=== PATIENT | male | born 1955 | race Caucasian/White ===

== ENCOUNTER 2016-05-25 05:46 | Day surgery (SDC) | payer BC ==
[~2016-05-25] VITALS: Ht 176.5 cm; Wt 93.1 kg
[~2016-05-25 05:46] MED LIST: ASPI-611 PO; GLIM1TAB PO; LISI-127 PO; METF-200 PO; METO25TA27 PO; MULT-806 PO; SIMV40TA82 PO
[2016-05-25 06:09] VITALS: BP 158/80; PULSE 54; RESP 14; TEMP 98; O2SAT 98; Ht 176.5 cm; Wt 93.1 kg
[2016-05-25] MEDS ORDERED: POTASSIUM PO (06:16)
[2016-05-25] MEDS ORDERED: LR 1,000 ML IV SCH (07:00)
[2016-05-25] MEDS ORDERED: LIDOCAINE 1% (10mg/ml) 2ml SDV INJ ONE (07:00)
--- NOTE | 2016-05-25 07:09 | ANESPREOP ---
Anesthesia Record Date and Time DATE: 05/25/16 TIME: 07:07 Pre-Op Diagnosis screening Proposed Surgical Procedure COLONOSCOPY NPO since: mn Allergies: Coded Allergies: Penicillins (Verified Allergy, Unknown, 05/25/16) Ht/Wt/BMI Height: 5 ' 9.50 " Weight: 93.100 kg BMI: 29.9 kg/m2 Vital Signs Date Time Temp Pulse Resp B/P Pulse Ox O2 Delivery O2 Flow Rate FiO2 05/25/16 06:09 98.0 54 14 158/80 98 Room Air Medications Inpatient Medications Current Medications Medications (Trade) Dose Ordered Sig/Finesse Start Time Stop Time Status Last Admin Dose Admin Lactated Ringer's (Lactated Ringers) 1,000 ml @ 50 mls/hr Q20H 05/25/16 07:00 05/25/16 06:25 50 MLS/HR Aspirin (Aspirin) 81 Mg Tablet, 81 MG PO DAILY, (Reported) Last Taken: on 05/23/16 Glimepiride (Glimepiride) 1 Mg Tablet, 1 MG PO DAILY, (Reported) Last Taken: on 05/24/16929 Lisinopril (Lisinopril) 10 Mg Tablet, 10 MG PO DAILY, (Reported) Last Taken: on 05/24/16929 Metformin Hcl (Metformin Hcl) 500 Mg Tablet, 500 MG PO BID, (Reported) Last Taken: on 05/23/16 Metoprolol Succinate (Metoprolol Succinate) 25 Mg Tab.sr.24h, 25 MG PO BID, (Reported) Last Taken: on 05/25/16 0400 Multivitamins (Multivitamin) 1 Tab Tablet, 1 TAB PO DAILY, (Reported) Last Taken: on 05/24/16929 Simvastatin (Simvastatin) 40 Mg Tablet, 40 MG PO DAILY, (Reported) Last Taken: on 05/24/16 2230 [Potassium] , PO D, (Reported) Last Taken: on 05/24/16929 Currently on Beta Renato: Yes Beta Renato Last Taken: TODAY 399 Medical/Surgical History Anesthesia PMH: Reports: *Diabetes (type 2 does not check blood sugars at home ), *Hypertension (controlled with meds), Anesthesia Reactions (no airway issues , N&V), Arthritis (fingers & back ), Cancer (prostate ), Denies: *Angina, * Dyspnea, *CT, Asthma, Blood Transfusion Reac, CHF, COPD, CVA/Stroke/TIA, Clotting Problems, Deep Vein Thrombosis, Glaucoma, Hepatitis, Hiatal Hernia, Malignant Hyperthermia, Pneumonia (POSSIBLY A CHILD), Reflux, Renal Disease, Seizures, Sleep Apnea, Thyroid Disease, Tuberculosis Smoking Status: Former smoker (10+ smoker ) Substance Use Type: does not use Alcohol Intake: none Past Surgical History Orthopedic Surgeries: Yes - LEFT HAND-FINGER REPAIRS Abdominal Surgeries: Yes - balaji Genitourinary Surgeries: No Cardiac Surgeries: No Endocrine Surgeries: No Reproductive Surgeries: Yes - PROSTATECTOMY Neurological Surgeries: No Ear Surgeries: No Nose Surgeries: Yes - septoplasty Throat Surgeries: No Other Surgeries: Yes - prostate surgery, colonoscopy X2 Anesthesia Adverse Reactions: FOUND nausea and vomiting, FOUND other (low blood pressure with prostate ) Hx of Motion Sickness: No Pertinent Findings EKG Rhythm: Sinus Rhythm Physical Exam Respiratory: Bilat breath sounds equal, Lungs clear Cardiovascular: FOUND Regular rate, rhythm, FOUND No murmur Airway Assessment Mallampati Score: II TMD: 3 Fingerbreadths Neck Extension: Fair Teeth: Upper Dentures, Partial Lower Dentures Overall Assessment: May Be Diff Intubation ASA: 2 Plan Anesthesia Plan: TIVA Discussion Discussed risks/options/alternatives of anesthesia and questions answered. Patient consents. Nursing pain assessment noted. Attestation Statement Prior to the delivery of any anesthetic medication, I examined the patient, developed the plan, obtained the patient's consent and discussed the risk and benefits of the procedure with the patient/guardian. ONIEL FERNANDEZ CRNA May 25, 2016 07:09
[2016-05-25] MEDS ORDERED: PROPOFOL 500mg 50 ML IV ONE (07:14)
[2016-05-25] MEDS ORDERED: LIDOCAINE 2% (20mg/ml) 5ml PF SDV ONE (07:14)
[2016-05-25 08:12] VITALS: BP 109/63; PULSE 50; RESP 12; TEMP 97.3; O2SAT 94
[2016-05-25 08:25] VITALS: BP 133/71; PULSE 46; RESP 14; O2SAT 96
[2016-05-25 08:40] VITALS: BP 154/79; PULSE 44; RESP 15; O2SAT 96
--- NOTE | 2016-05-25 08:50 | ANESPO ---
Post-Op Note Date 05/25/16 Time: 08:50 Status Pt Participated in Evaluation: Pt participated in person Vital Signs Date Time Temp Pulse Resp B/P Pulse Ox O2 Delivery O2 Flow Rate FiO2 05/25/16 08:25 46 14 133/71 96 Room Air 05/25/16 08:12 97.3 Respiratory Function: Airway patent, Regular respirations Cardiovascular Function: Regular pulse Mental Status: Alert/oriented Pain Level Intensity: 0 Hydration: IV infusing Complications during Recovery None apparent Follow-Up Instructions Instructions Per Surgeon ONIEL BRIGGS CRNA May 25, 2016 08:50
[2016-05-25 08:55] VITALS: BP 132/77; PULSE 48; RESP 14; O2SAT 97
[2016-05-25 09:15] VITALS: BP 137/82; PULSE 48; RESP 15; O2SAT 96
--- NOTE | 2016-05-25 13:18 | OPNOTEF ---
DATE OF PROCEDURE: 05/25/2016 SURGEON : Cornelio Alvarado MD PREOPERATIVE DIAGNOSIS Colorectal cancer surveillance/personal history of colon polyps. POSTOPERATIVE DIAGNOSIS Colorectal cancer surveillance/personal history of colon polyps, mild to moderate sigmoid diverticulosis, colonic polyps located within the cecum, 80 cm, 60 cm, 40 cm and 35 cm. PROCEDURE: Colonoscopy with polypectomy via snare technique. ANESTHESIA: TIVA. BRIEF HISTORY/INDICATIONS Jaspal is a 61-year-old patient of mine who had a colonoscopy three years ago. At that time he was found to have multiple tubular adenomas. The decision was made to proceed with a repeat colonoscopy. For completeness please refer to office notes. FINDINGS Upon colonoscopy there was no evidence for angiodysplastic lesions or gio malignancies. The patient was found to have mild to moderate sigmoid diverticulosis. Patient was also found to have five colonic polyps. These polyps were located within the cecum x 1, 80 cm, 60 cm, 40 cm and 35 cm. Polyps range from 3-6 mm in diameter with the largest one being at 80 cm. The polyp at 80 cm was snared and the rest removed via hot forceps technique and sent to pathology. DESCRIPTION OF PROCEDURE After informed consent was obtained, the patient was brought to the endoscopy suite and placed on the table in the left lateral decubitus position. The patient subsequently underwent total intravenous anesthesia by the nurse lead enterprise architect per my request. Next, a digital rectal examination was performed; normal sphincter tone. No rectal masses were appreciated. An Olympus colonoscope was inserted in the anus and advanced with the lumen of the colon under direct visualization at all times until the cecum was ascertained. Triangulation of the tenia coli, ileocecal valve and appendiceal lumen were all visualized. The scope was then slowly withdrawn, again while maintaining visualization of the lumen at all times. As stated above, the entire colon was without evidence for angiodysplastic lesions or gio malignancies. The patient was found to have mild to moderate sigmoid diverticulosis. The patient was found to have five colonic polyps as described above. Polyps were located within the cecum x 1, at 80, 60, 40 and 35 cm from the anal verge. All polyps were removed and sent to pathology. Photographs were obtained for documentation. The scope continued to be withdrawn until it was removed from the patient's anal verge. The patient tolerated the procedure without difficulty and was sent back to the preoperative area in stable condition. We will await the biopsy results to make further recommendations. It is my suspicion we'll be looking at 3-year colonoscopy on Mr. Wright. ОЛЬГА
== END 2016-05-25 09:35 | disposition home or self-care (01) ==
LOC: SCU 05:46
PROVIDERS: ATTEND Family Medicine
DX: Z12.11 Encounter for screening for malignant neoplasm of colon (principal); D12.0 Benign neoplasm of cecum; D12.6 Benign neoplasm of colon, unspecified; K57.30 Diverticulosis of large intestine without perforation or abscess without bleeding; Z86.010 Personal history of colon polyps; E11.9 Type 2 diabetes mellitus without complications; I10 Essential (primary) hypertension; Z79.82 Long term (current) use of aspirin; Z79.84 Long term (current) use of oral hypoglycemic drugs; Z79.899 Other long term (current) drug therapy
CPT/HCPCS: 45384; 45385; 82948; J2704; J7120